=== PATIENT | male | born 1955 | race Caucasian/White ===

== ENCOUNTER 2019-06-07 14:14 | Outpatient (CLI) | payer OTHER ==
--- NOTE | 2019-06-07 14:38 | RAD ---
XR Lumbar Spine 2 Or 3 View HISTORY: Disability evaluation FINDINGS: Degenerative changes are present. No compression fracture is seen. There is grade 1 anterolisthesis o f L5 over S1. There is minimal retrolisthesis of L2 over L3 vertebral bodies.
== END 2019-06-07 14:15 | disposition home or self-care (01) ==
LOC: NAV RAD 14:14
PROVIDERS: ATTEND Family Medicine
DX: M51.17 Intervertebral disc disorders with radiculopathy, lumbosacral region (principal)
CPT/HCPCS: 72100